=== PATIENT | female | born 1990 | race Caucasian/White ===

== ENCOUNTER 2017-06-17 15:57 | Emergency (ER) | payer OTHER ==
[~2017-06-17] VITALS: Ht 165.1 cm; Wt 55.0 kg
[2017-06-17] MEDS ORDERED: HYDROCODONE/ACETAMINOPHEN 5-325 MG TABLET PO ONE (17:00)
[2017-06-17] MEDS ORDERED: PERTUSS(ACELL),DIPH,TET VAC/PF 0.5 ML VIAL IM ONE (17:00)
[2017-06-17] MEDS ORDERED: POVIDONE-IODINE 10% 15 ML SOLUTION UD TP ONE (17:00)
[2017-06-17] MEDS ORDERED: BUPIVACAINE HCL/PF 0.25% 30 ML VIAL INJ ONE (18:45)
[2017-06-17] MEDS ORDERED: BUPIVACAINE HCL/PF 0.25% 10 ML VIAL INJ ONE (18:45)
[2017-06-17] MEDS ORDERED: LIDOCAINE HCL 1% 10 ML VIAL INJ ONE (18:45)
[2017-06-17] MEDS ORDERED: BACITRACIN 0.9 GM PACKET OINTMENT TP ONE (20:00)
[2017-06-17 20:20] VITALS: BP 123/64
== END 2017-06-17 20:22 | disposition home or self-care (01) ==
LOC: EMS 16:00
DX: S61.217A Laceration without foreign body of left little finger without damage to nail, initial encounter (principal); W45.8XXA Other foreign body or object entering through skin, initial encounter; Y93.89 Activity, other specified; Y92.009 Unspecified place in unspecified non-institutional (private) residence as the place of occurrence of the external cause; Y99.8 Other external cause status
CPT/HCPCS: 12001; 90471; 90715; 99284; J3490 ×2

== ENCOUNTER 2017-06-22 14:16 | Emergency (ER) | payer OTHER ==
[~2017-06-22] VITALS: Ht 157.5 cm; Wt 62.0 kg
[2017-06-22 14:46] VITALS: BP 152/69
== END 2017-06-22 15:08 | disposition home or self-care (01) ==
LOC: EMS 14:17
DX: S61.211D Laceration without foreign body of left index finger without damage to nail, subsequent encounter (principal); W26.0XXD Contact with knife, subsequent encounter
CPT/HCPCS: 99281

== ENCOUNTER 2017-06-27 18:55 | Emergency (ER) | payer OTHER ==
[~2017-06-27] VITALS: Ht 162.6 cm; Wt 62.0 kg
[2017-06-27 21:22] VITALS: BP 125/65
== END 2017-06-27 21:32 | disposition home or self-care (01) ==
LOC: EMS 18:56
DX: Z48.02 Encounter for removal of sutures (principal)
CPT/HCPCS: 99283